=== PATIENT | female | born 1950 | race Caucasian/White ===

== ENCOUNTER 2023-12-15 10:45 | Emergency (ER) | payer MEDICARE ==
[~2023-12-15] VITALS: Ht 172.7 cm; Wt 98.4 kg
[2023-12-15 11:18] LABS: Source, Urine Clean Catch
[2023-12-15 11:27] LABS: Bilirubin, Urine Neg (Neg); Blood, Urine 5+ (Neg); Glucose Qualitative, Urine Neg (Neg); Ketones, Urine Neg (Neg); Leukocyte Esterase, Urine 3+ (Neg); Nitrite, Urine Neg (Neg); Protein, Urine 3+ (Neg); Urobilinogen, Urine NORM (Normal)
[2023-12-15] MEDS ORDERED: Bentyl20 MG PO (11:37)
[2023-12-15] MEDS ORDERED: PRAMIPEXOLE D0.25 M1 PO (11:37)
[2023-12-15 11:38] LABS: Appearance, Urine Hazy (Clear); Color, Urine Brown (P-Yellow)
[2023-12-15] MEDS ORDERED: GABA100 PO (11:38)
[2023-12-15 11:40] LABS: Bacteria Mod /hpf; Red Blood Cells, Urine TNTC /hpf (0-2); Squamous Epithelial Cells Mod /hpf (Few); White Blood Cells, Urine TNTC /hpf (0-5)
[2023-12-15] MEDS ORDERED: Cephalexin Monohydrate 500 MG Cap PO ONE (12:05)
[2023-12-15] MEDS ORDERED: CEPH500 PO (12:06)
== END 2023-12-15 12:13 | disposition home or self-care (01) ==
LOC: ER 10:45
PROVIDERS: Physician Assistant
DX: N39.0 Urinary tract infection, site not specified (principal); R31.9 Hematuria, unspecified; Z88.2 Allergy status to sulfonamides
CPT/HCPCS: 81001; 87086; 99283; A9270